=== PATIENT | male | born 1970 | race Caucasian/White ===

== ENCOUNTER 2016-10-26 08:25 | Emergency (ER) | payer MEDICAID ==
[~2016-10-26] VITALS: Ht 172.7 cm; Wt 85.3 kg
[2016-10-26 08:38] VITALS: BP 106/69
== END 2016-10-26 09:57 | disposition home or self-care (01) ==
LOC: ER 08:25
DX: S22.41XA Multiple fractures of ribs, right side, initial encounter for closed fracture (principal); F17.210 Nicotine dependence, cigarettes, uncomplicated; W01.0XXA Fall on same level from slipping, tripping and stumbling without subsequent striking against object, initial encounter; Y93.01 Activity, walking, marching and hiking; Y99.8 Other external cause status; Y92.096 Garden or yard of other non-institutional residence as the place of occurrence of the external cause
CPT/HCPCS: 71111

== ENCOUNTER 2018-03-11 16:55 | Emergency (ER) | payer MEDICAID ==
[~2018-03-11] VITALS: Ht 172.7 cm; Wt 88.5 kg
[2018-03-11 17:54] VITALS: BP 106/87
== END 2018-03-11 20:06 | disposition home or self-care (01) ==
LOC: ER 16:55
DX: K42.9 Umbilical hernia without obstruction or gangrene (principal); F17.210 Nicotine dependence, cigarettes, uncomplicated
CPT/HCPCS: 76705